=== PATIENT | male | born 1980 | race Two or more races ===

== ENCOUNTER 2024-08-25 00:22 | Inpatient (IN) | payer OTHER ==
[~2024-08-25] VITALS: Ht 175.3 cm; Wt 90.0 kg
[2024-08-25 01:51] LABS: COVID AG,FIA SOURCE NASAL SWAB
[2024-08-25 01:52] LABS: BASOPHILS % (AUTO) 0.6 % (0.0-2.0); EOSINOPHILS % (AUTO) 3.4 % (1.0-6.0); HEMATOCRIT 44.1 % (41-53); HEMOGLOBIN 14.6 g/dL (13.5-17.5); LYMPHOCYTES # (AUTO) 1.2 K/uL (1.0-4.8); LYMPHOCYTES % (AUTO) 15.4 % (22.0-44.0); MEAN CORPUSCULAR HEMOGLOBIN 30.3 pg (26.0-34.0); MEAN CORPUSCULAR HGB CONC 33.2 G/dL (31.0-37.0); MEAN CORPUSCULAR VOLUME 91 fL (80-100); MONOCYTES # (AUTO) 0.7 K/uL (0.1-1.0); MONOCYTES % (AUTO) 8.8 % (2.0-9.0); NEUTROPHILS # (AUTO) 5.8 K/uL (1.8-7.7); NEUTROPHILS % (AUTO) 71.8 % (40.0-70.0); PLATELET COUNT (AUTO) 236 K/uL (150-450); RED BLOOD CELL COUNT(AUTO) 4.83 MIL/uL (4.50-5.90); WHITE BLOOD COUNT (AUTO) 8.1 K/uL (4.5-11.0)
[2024-08-25 02:01] LABS: ANION GAP 6 mmol/L (8-16); CALCIUM, TOTAL 8.6 mg/dL (8.8-10.5); CARBON DIOXIDE 28 mmol/L (22-29); CHLORIDE 103 mmol/L (98-107); CREATININE 0.81 mg/dL (0.60-1.30); GLOMERULAR FILTR. RATE CALC > 60 mL/min (>60); GLUCOSE,RANDOM 95 mg/dL (70-110); POTASSIUM 4.1 mmol/L (3.5-5.1); SODIUM SERUM 137 mmol/L (136-145); UREA NITROGEN, BLOOD 14 mg/dL (7-18)
[2024-08-25 02:03] LABS: ALCOHOL, BLOOD (SERUM) < 3 mg/dL (0-10)
[2024-08-25 02:25] LABS: SARS-COV2 (COVID) ANTIGEN,FIA Negative (Negative)
[2024-08-25 05:42] VITALS: BP 132/71; PULSE 61; RESP 18; TEMP 97.9; O2SAT 100
[2024-08-25] MEDS ORDERED: DICYCLOMINE HCL 10 MG CAPSULE PO PRN (06:15)
[2024-08-25] MEDS ORDERED: LOPERAMIDE HCL 2 MG CAPSULE PO PRN ×2 (06:15→14:45)
[2024-08-25] MEDS ORDERED: METOCLOPRAMIDE HCL 5 MG/ML 2 ML VIAL IVP PRN (06:15)
[2024-08-25] MEDS: INFLUENZA VIRUS VACCINE TVS (6MO+) 2024-25/PF 45 MCG/0.5 ML SYRINGE IM. ONE (08:09)
[2024-08-25] MEDS: SODIUM CHLORIDE 0.9% 1,000 ML IV ONE (09:15)
[2024-08-25] MEDS ORDERED: CloNIDine HCL 0.1 MG TABLET PO PRN (14:45)
[2024-08-25] MEDS ORDERED: MAG HYDROX/ALUMINUM HYD/SIMETH ES 30 ML SUSPENSION UDCUP PO PRN (14:45)
[2024-08-25] MEDS ORDERED: GuaiFENesin/D-METHORPHAN [SUGAR-FREE] 200-20MG/10 ML SYRUP UDCUP PO PRN (14:45)
[2024-08-25] MEDS ORDERED: HydrOXYzine PAMOATE 50 MG CAPSULE PO PRN (14:45)
[2024-08-25] MEDS: THIAMINE 100 MG TABLET PO SCH (15:08)
[2024-08-25] MEDS: FOLIC ACID 1 MG TABLET PO SCH (15:08)
[2024-08-25] MEDS: MULTIVITAMINS WITH MINERALS, THERAPEUTIC TABLET PO SCH (15:08)
[2024-08-25] MEDS: CYANOCOBALAMIN 1,000 MCG/ML VIAL IM ONE (15:17)
[2024-08-25 16:00] VITALS: BP 121/85; PULSE 89; RESP 18; TEMP 98; O2SAT 100
[2024-08-25 19:36] VITALS: BP 130/79; PULSE 81; RESP 18; TEMP 98.1; O2SAT 98
[2024-08-25] MEDS: TEMAZEPAM 15 MG CAPSULE PO SCH (21:09)
[2024-08-26 04:38] VITALS: BP 124/75; PULSE 84; RESP 18; TEMP 98; O2SAT 99
[2024-08-26 08:06] VITALS: BP 119/60; PULSE 63; RESP 20; TEMP 97.8; O2SAT 99
[2024-08-26] MEDS: HydrOXYzine PAMOATE 50 MG CAPSULE PO PRN (12:05)
[2024-08-26 14:20] VITALS: BP 124/60; PULSE 71; RESP 19; TEMP 98.1; O2SAT 100
[2024-08-26 20:26] VITALS: BP 117/83; PULSE 85; RESP 18; TEMP 98.5; O2SAT 100
[2024-08-27 00:03] VITALS: BP 120/69; PULSE 75; RESP 19; TEMP 98.5; O2SAT 100
[2024-08-27] MEDS: IBUPROFEN 600 MG TABLET PO PRN (03:35)
[2024-08-27 03:41] VITALS: BP 129/74; PULSE 70; RESP 17; TEMP 98.6; O2SAT 100
[2024-08-27 12:00] VITALS: BP 132/73; PULSE 64; RESP 18; TEMP 97.8; O2SAT 99
[2024-08-27 16:00] VITALS: BP 118/72; PULSE 65; RESP 16; TEMP 98.2; O2SAT 100
[2024-08-27 20:17] VITALS: BP 129/79; PULSE 73; RESP 19; TEMP 97.9; O2SAT 100
[2024-08-27] MEDS: LORazepam 2 MG/ML VIAL IVP PRN (21:50)
[2024-08-28 00:30] VITALS: BP 124/70; PULSE 78; RESP 17; TEMP 98.1; O2SAT 100
[2024-08-28 04:00] VITALS: BP 122/71; PULSE 69; RESP 18; TEMP 98.1; O2SAT 100
[2024-08-28 08:00] VITALS: BP 115/60; PULSE 66; RESP 18; TEMP 98.1; O2SAT 100
[2024-08-28] MEDS: DICYCLOMINE HCL 10 MG CAPSULE PO PRN (08:33)
[2024-08-28 12:00] VITALS: BP 118/61; PULSE 71; RESP 18; TEMP 98.2; O2SAT 100
[2024-08-28 16:00] VITALS: BP 112/65; PULSE 72; RESP 18; TEMP 98.4; O2SAT 100
[2024-08-28 16:18] LABS: AMPHET/METH SCREEN,URINE POSITIVE (NEGATIVE); BARBITURATE SCREEN, URINE NEGATIVE (NEGATIVE); BENZODIAZEPINES SCREEN,URINE NEGATIVE (NEGATIVE); CANNABINOID SCREEN,URINE NEGATIVE (NEGATIVE); COCAINE SCREEN,URINE NEGATIVE (NEGATIVE); METHADONE SCREEN, URINE NEGATIVE (NEGATIVE); OPIATE SCREEN,URINE NEGATIVE (NEGATIVE); PHENCYCLIDINE SCREEN,URINE NEGATIVE (NEGATIVE)
[2024-08-28 16:29] LABS: ALCOHOL, URINE DRUG SCREEN NEGATIVE (NEGATIVE)
[2024-08-28 19:50] VITALS: BP 119/80; PULSE 73; RESP 18; TEMP 98.8; O2SAT 98
[2024-08-29 04:34] VITALS: BP 105/53; PULSE 65; RESP 18; TEMP 98.5; O2SAT 100
[2024-08-29 08:01] VITALS: BP 119/71; PULSE 80; RESP 17; TEMP 98.3; O2SAT 100
[2024-08-29 11:22] VITALS: BP 117/71; PULSE 75; RESP 18; TEMP 98.2; O2SAT 96
[2024-08-29 11:27] VITALS: BP 117/71; PULSE 75; RESP 18; TEMP 98.2; O2SAT 100
[2024-08-29] MEDS ORDERED: FOLI0.4T14 PO (14:34)
[2024-08-29] MEDS ORDERED: FOLI-130 PO (14:35)
[2024-08-29] MEDS ORDERED: MULT-1303 PO (14:37)
[2024-08-29] MEDS ORDERED: THIA100T80 PO (14:38)
[2024-08-29 15:49] VITALS: BP 107/66; PULSE 73; RESP 18; TEMP 98.5; O2SAT 100
[2024-08-29 16:00] VITALS: BP 107/66; PULSE 73; RESP 18; TEMP 98.5; O2SAT 100
== END 2024-08-29 18:20 | DRG 897 ==
LOC: EMS 00:22 → EDH 02:59 → 5N 05:30
PROVIDERS: ADMIT Internal Medicine; ATTEND Internal Medicine
DX: F11.23 Opioid dependence with withdrawal (principal); F15.13 Other stimulant abuse with withdrawal; Z20.822 Contact with and (suspected) exposure to COVID-19; Z79.899 Other long term (current) drug therapy; D17.9 Benign lipomatous neoplasm, unspecified
CPT/HCPCS: 74176; 80048; 80307; 85025; 87491; 87591; 99285; G0480; J2060; J3420

== ENCOUNTER 2024-12-08 19:23 | Inpatient (IN) | payer OTHER ==
[~2024-12-08] VITALS: Ht 177.8 cm; Wt 94.5 kg
[~2024-12-08 19:23] MED LIST: FOLI-130 PO; MULT-1303 PO; THIA100T80 PO
[2024-12-08 23:24] LABS: BASOPHILS % (AUTO) 0.4 % (0.0-2.0); EOSINOPHILS % (AUTO) 3.3 % (1.0-6.0); HEMATOCRIT 42.6 % (41-53); LYMPHOCYTES # (AUTO) 1.1 K/uL (1.0-4.8); LYMPHOCYTES % (AUTO) 12.3 % (22.0-44.0); MEAN CORPUSCULAR HEMOGLOBIN 29.4 pg (26.0-34.0); MEAN CORPUSCULAR HGB CONC 32.9 G/dL (31.0-37.0); MEAN CORPUSCULAR VOLUME 89 fL (80-100); MONOCYTES % (AUTO) 10.7 % (2.0-9.0); NEUTROPHILS # (AUTO) 6.7 K/uL (1.8-7.7); NEUTROPHILS % (AUTO) 73.3 % (40.0-70.0); PLATELET COUNT (AUTO) 244 K/uL (150-450); RED BLOOD CELL COUNT(AUTO) 4.77 MIL/uL (4.50-5.90); RED CELL DISTRIBUTION WIDTH 13.5 % (11.5-14.5); WHITE BLOOD COUNT (AUTO) 9.2 K/uL (4.5-11.0)
[2024-12-08 23:38] LABS: ANION GAP 8 mmol/L (8-16); CALCIUM, TOTAL 8.8 mg/dL (8.8-10.5); CARBON DIOXIDE 29 mmol/L (22-29); CHLORIDE 102 mmol/L (98-107); CREATININE 0.77 mg/dL (0.60-1.30); GLOMERULAR FILTR. RATE CALC > 60 mL/min (>60); GLUCOSE,RANDOM 95 mg/dL (70-110); POTASSIUM 4.5 mmol/L (3.5-5.1); SODIUM SERUM 139 mmol/L (136-145); UREA NITROGEN, BLOOD 11 mg/dL (7-18)
[2024-12-08] MEDS ORDERED: ACETAMINOPHEN 325 MG TABLET PO PRN (23:45)
[2024-12-08] MEDS ORDERED: ONDANSETRON HCL 4 MG/2 ML VIAL IVP PRN (23:45)
[2024-12-08 23:47] LABS: LACTIC ACID 1.1 mmol/L (0.4-2.0)
[2024-12-09] MEDS: TraMADol HCL 50 MG TABLET PO ONE (00:09)
[2024-12-09] MEDS: VANCOMYCIN 1GM/WATER(PEG/NADA) 200 ML IV ONE (00:09)
[2024-12-09] MEDS: SODIUM CHLORIDE 0.9% 1,000 ML IV ONE (00:10)
[2024-12-09] MEDS: LIDOCAINE 1% 10 ML VIAL SQ ONE (00:10)
[2024-12-09] MEDS: HEPARIN SODIUM,PORCINE 5,000 UNITS/ML VIAL SQ SCH (00:11)
[2024-12-09 06:09] LABS: ANION GAP 9 mmol/L (8-16); CALCIUM, TOTAL 8.3 mg/dL (8.8-10.5); CARBON DIOXIDE 25 mmol/L (22-29); CHLORIDE 105 mmol/L (98-107); GLOMERULAR FILTR. RATE CALC > 60 mL/min (>60); GLUCOSE,RANDOM 96 mg/dL (70-110); POTASSIUM 4.3 mmol/L (3.5-5.1); SODIUM SERUM 139 mmol/L (136-145); UREA NITROGEN, BLOOD 8 mg/dL (7-18)
[2024-12-09 06:12] LABS: HEMATOCRIT 40.8 % (41-53); HEMOGLOBIN 13.7 g/dL (13.5-17.5); MONOCYTES # (AUTO) 0.9 K/uL (0.1-1.0); PLATELET COUNT (AUTO) 201 K/uL (150-450); RED BLOOD CELL COUNT(AUTO) 4.55 MIL/uL (4.50-5.90)
[2024-12-09 06:15] LABS: BASOPHILS % (AUTO) 0.7 % (0.0-2.0); EOSINOPHILS % (AUTO) 2.5 % (1.0-6.0); LYMPHOCYTES # (AUTO) 1.2 K/uL (1.0-4.8); LYMPHOCYTES % (AUTO) 12.3 % (22.0-44.0); MEAN CORPUSCULAR HEMOGLOBIN 30.1 pg (26.0-34.0); MEAN CORPUSCULAR HGB CONC 33.5 G/dL (31.0-37.0); MEAN CORPUSCULAR VOLUME 90 fL (80-100); MONOCYTES % (AUTO) 9.2 % (2.0-9.0); NEUTROPHILS # (AUTO) 7.1 K/uL (1.8-7.7); NEUTROPHILS % (AUTO) 75.3 % (40.0-70.0); RED CELL DISTRIBUTION WIDTH 13.6 % (11.5-14.5); WHITE BLOOD COUNT (AUTO) 9.5 K/uL (4.5-11.0)
[2024-12-09] MEDS: DOCUSATE SODIUM 100 MG CAPSULE PO SCH (07:10)
[2024-12-09] MEDS: KETOROLAC TROMETHAMINE 15 MG/ML VIAL IVP PRN (07:13)
[2024-12-09 08:42] VITALS: BP 125/58; PULSE 80; RESP 18; TEMP 98.3; O2SAT 99
[2024-12-09] MEDS ORDERED: SODIUM CHLORIDE 0.9% 100 ML ONE (13:52)
[2024-12-09] MEDS ORDERED: IOHEXOL 350 MG/ML 100 ML VIAL ONE (13:52)
[2024-12-09] MEDS: VANCOMYCIN 1.25 GM/WATER(PEG) 250 ML IV SCH (15:46)
[2024-12-09 19:24] VITALS: BP 122/73; PULSE 69; RESP 18; TEMP 98.1; O2SAT 97
[2024-12-10] MEDS: CLINDAMYCIN 600 MG/D5% WATER 50 ML IV ONE (00:12)
[2024-12-10] MEDS: SODIUM CHLORIDE 0.9% 1,000 ML IV ONE (00:20)
[2024-12-10 04:58] VITALS: BP 123/72; PULSE 65; RESP 18; TEMP 98.1; O2SAT 98
[2024-12-10 08:38] LABS: ANION GAP 8 mmol/L (8-16); CARBON DIOXIDE 27 mmol/L (22-29); CHLORIDE 107 mmol/L (98-107); CREATININE 0.67 mg/dL (0.60-1.30); GLOMERULAR FILTR. RATE CALC > 60 mL/min (>60); GLUCOSE,RANDOM 83 mg/dL (70-110); POTASSIUM 3.7 mmol/L (3.5-5.1); SODIUM SERUM 142 mmol/L (136-145); UREA NITROGEN, BLOOD 10 mg/dL (7-18)
[2024-12-10 08:46] VITALS: BP 128/72; PULSE 68; RESP 18; TEMP 98; O2SAT 100
[2024-12-10 20:12] VITALS: BP 106/55; PULSE 63; RESP 18; TEMP 98.1; O2SAT 96
[2024-12-11 04:42] VITALS: BP 120/70; PULSE 65; RESP 18; TEMP 98.3; O2SAT 99
[2024-12-11] MEDS ORDERED: RINGERS SOLUTION,LACTATED 1,000 ML IV ONE (06:38)
[2024-12-11] MEDS ORDERED: BUPIVACAINE HCL/PF 0.5% 10 ML VIAL ONE (06:54)
[2024-12-11] MEDS ORDERED: BUPIVACAINE HCL/PF 0.5% 30 ML VIAL ONE (06:54)
[2024-12-11] MEDS ORDERED: LIDOCAINE 2%/EPI 1:200,000/PF 20 ML VIAL ONE (06:55)
[2024-12-11] MEDS ORDERED: VANCOMYCIN 1.25 GM/WATER(PEG) 250 ML IV ONE (07:00)
[2024-12-11] MEDS: ETHYL ALCOHOL 62% ANTISEPTIC NASAL SANITIZER 0.6 ML AMPUL NASAL ONE (07:33)
[2024-12-11] MEDS: CHLORHEXIDINE GLUCONATE 2% TOWELETTE [2'S/6'S] TP ONE (07:33)
[2024-12-11] MEDS ORDERED: ONDANSETRON HCL 4 MG/2 ML VIAL IM PRN (08:15)
[2024-12-11] MEDS ORDERED: MEPERIDINE-PF 25 MG/ML VIAL IVP PRN (08:15)
[2024-12-11] MEDS ORDERED: HYDROmorphone HCL 2 MG/ML SYRINGE IVP PRN (08:15)
[2024-12-11] MEDS ORDERED: ACETAMINOPHEN 500 MG TABLET PO PRN (08:15)
[2024-12-11] MEDS ORDERED: MORPHINE SULFATE 2 MG/ML SYRINGE IVP PRN (08:15)
[2024-12-11] MEDS ORDERED: IBUPROFEN 800 MG TABLET PO PRN (08:15)
[2024-12-11] MEDS ORDERED: HYDROCODONE/ACETAMINOPHEN 5-325 MG TABLET PO PRN ×2 (08:15)
[2024-12-11] MEDS ORDERED: FentaNYL CITRATE PF 100 MCG/2 ML VIAL ONE (08:24)
[2024-12-11] MEDS: FentaNYL CITRATE PF 100 MCG/2 ML VIAL IVP PRN (08:28)
[2024-12-11] MEDS: RINGERS SOLUTION,LACTATED 1,000 ML IV ONE (08:31)
[2024-12-11] MEDS: CeFAZolin 2 GM/DEXTROSE 50 ML IV SCH (09:25)
[2024-12-11] MEDS ORDERED: SODIUM CHLORIDE 0.9% 500 ML IV ONE (09:27)
[2024-12-11] MEDS ORDERED: SUGAMMADEX SODIUM 200 MG/2 ML VIAL IVP ONE (12:00)
[2024-12-11] MEDS ORDERED: ONDANSETRON HCL 4 MG/2 ML VIAL ONE (12:00)
[2024-12-11] MEDS ORDERED: DEXAMETHASONE SOD PHOS 4 MG/ML VIAL ONE (12:00)
[2024-12-11] MEDS ORDERED: PROPOFOL 1% 20 ML VIAL IVP ONE (12:00)
[2024-12-11] MEDS ORDERED: ROCURONIUM BROMIDE 10 MG/ML 5 ML VIAL ONE (12:00)
[2024-12-11] MEDS ORDERED: LIDOCAINE/PF 2% 5 ML SYRINGE IVP ONE (12:00)
[2024-12-11 12:34] VITALS: BP 126/89; PULSE 75; RESP 18; TEMP 98.2; O2SAT 100
[2024-12-11 13:45] LABS: ANION GAP 10 mmol/L (8-16); CALCIUM, TOTAL 8.8 mg/dL (8.8-10.5); CARBON DIOXIDE 23 mmol/L (22-29); CHLORIDE 107 mmol/L (98-107); CREATININE 0.66 mg/dL (0.60-1.30); GLOMERULAR FILTR. RATE CALC > 60 mL/min (>60); GLUCOSE,RANDOM 114 mg/dL (70-110); POTASSIUM 4.1 mmol/L (3.5-5.1); SODIUM SERUM 140 mmol/L (136-145); UREA NITROGEN, BLOOD 7 mg/dL (7-18)
[2024-12-11 14:15] LABS: VANCOMYCIN,RANDOM 19.4 mcg/mL (25.0-50.0)
[2024-12-11 15:39] VITALS: BP 132/74; PULSE 79; RESP 18; TEMP 98.2; O2SAT 97
[2024-12-11] MEDS ORDERED: VANCOMYCIN 1.25 GM/WATER(PEG) 250 ML IV SCH (16:00)
[2024-12-11] MEDS: HYDROCODONE/ACETAMINOPHEN 5-325 MG TABLET PO PRN (16:19)
[2024-12-11] MEDS: IBUPROFEN 800 MG TABLET PO PRN (20:11)
[2024-12-11 20:17] VITALS: BP 128/58; PULSE 100; RESP 18; TEMP 98.5; O2SAT 98
[2024-12-11] MEDS: MELATONIN 3 MG TABLET PO PRN (21:55)
[2024-12-11] MEDS: OXYGEN THERAPY IH SCH (22:00)
[2024-12-12 05:07] VITALS: BP 118/64; PULSE 56; RESP 18; TEMP 97.9; O2SAT 96
[2024-12-12 07:36] LABS: ANION GAP 8 mmol/L (8-16); CALCIUM, TOTAL 8.7 mg/dL (8.8-10.5); CARBON DIOXIDE 26 mmol/L (22-29); CHLORIDE 110 mmol/L (98-107); CREATININE 0.84 mg/dL (0.60-1.30); GLOMERULAR FILTR. RATE CALC > 60 mL/min (>60); GLUCOSE,RANDOM 97 mg/dL (70-110); POTASSIUM 3.2 mmol/L (3.5-5.1); SODIUM SERUM 144 mmol/L (136-145); UREA NITROGEN, BLOOD 11 mg/dL (7-18)
[2024-12-12 09:04] VITALS: BP 122/72; PULSE 68; RESP 18; TEMP 98.1; O2SAT 99
[2024-12-12] MEDS ORDERED: SODIUM CL IRRIG SOLN BOTTLE 250 ML IRRIG ONE (10:30)
[2024-12-12] MEDS ORDERED: POTASSIUM CHL 10 MEQ/WATER 50 ML IV PRN (12:45)
[2024-12-12] MEDS: POTASSIUM CHLORIDE 20 MEQ ER TABLET PO PRN (13:00)
[2024-12-12 20:26] VITALS: BP 111/57; PULSE 65; RESP 18; TEMP 98.6; O2SAT 98
[2024-12-12] MEDS: ZOLPIDEM TARTRATE 10 MG TABLET PO PRN (20:30)
[2024-12-13 04:40] VITALS: BP 115/78; PULSE 64; RESP 18; TEMP 98.2; O2SAT 98
[2024-12-13] MEDS ORDERED: MIDAZOLAM HCL 2 MG/2 ML VIAL IVP ONE (07:32)
[2024-12-13] MEDS ORDERED: FentaNYL CITRATE PF 100 MCG/2 ML VIAL IVP ONE (07:32)
[2024-12-13 08:29] LABS: ANION GAP 9 mmol/L (8-16); CALCIUM, TOTAL 8.3 mg/dL (8.8-10.5); CARBON DIOXIDE 25 mmol/L (22-29); CHLORIDE 109 mmol/L (98-107); CREATININE 0.74 mg/dL (0.60-1.30); GLOMERULAR FILTR. RATE CALC > 60 mL/min (>60); GLUCOSE,RANDOM 91 mg/dL (70-110); POTASSIUM 3.5 mmol/L (3.5-5.1); SODIUM SERUM 143 mmol/L (136-145); UREA NITROGEN, BLOOD 9 mg/dL (7-18)
[2024-12-13 08:38] VITALS: BP 108/72; PULSE 62; RESP 18; TEMP 98.4; O2SAT 99
[2024-12-13 20:29] VITALS: BP 117/80; PULSE 71; RESP 18; TEMP 98.2; O2SAT 98
[2024-12-14 04:45] VITALS: BP 131/83; PULSE 63; RESP 18; TEMP 98; O2SAT 96
[2024-12-14 07:56] LABS: ANION GAP 6 mmol/L (8-16); CALCIUM, TOTAL 8.4 mg/dL (8.8-10.5); CARBON DIOXIDE 27 mmol/L (22-29); CHLORIDE 108 mmol/L (98-107); CREATININE 0.68 mg/dL (0.60-1.30); GLOMERULAR FILTR. RATE CALC > 60 mL/min (>60); GLUCOSE,RANDOM 88 mg/dL (70-110); POTASSIUM 3.6 mmol/L (3.5-5.1); SODIUM SERUM 141 mmol/L (136-145); UREA NITROGEN, BLOOD 11 mg/dL (7-18); VANCOMYCIN,RANDOM 17.1 mcg/mL (25.0-50.0)
[2024-12-14 08:19] VITALS: BP 100/76; PULSE 57; RESP 19; TEMP 98.7; O2SAT 95
[2024-12-14] MEDS ORDERED: ACET-3385 PO (10:39)
[2024-12-14] MEDS ORDERED: IBUP-1493 PO (10:40)
[2024-12-14] MEDS ORDERED: LEVO750T68 PO (10:41)
[2024-12-14] MEDS ORDERED: VANCOMYCIN 1.5 GM/WATER(PEG) 300 ML IV SCH (20:00)
== END 2024-12-14 20:20 | DRG 572 ==
LOC: EMS 19:23 → EDH 23:41 → 6S 12-09 09:15
PROVIDERS: ADMIT Internal Medicine; ATTEND Internal Medicine
PROC: 0JBD0ZZ Excision of Right Upper Arm Subcutaneous Tissue and Fascia, Open Approach (ICD-10-PCS; principal; 2024-12-11 07:45)
DX: L03.113 Cellulitis of right upper limb (principal); L02.413 Cutaneous abscess of right upper limb; D17.1 Benign lipomatous neoplasm of skin and subcutaneous tissue of trunk; Z79.899 Other long term (current) drug therapy
CPT/HCPCS: 73201; 80048; 80202; 83605; 83735; 84132; 85025; 87040; 87070; 87081; 87101; 87186; 87205; 99285; G0378; J0690; J1100; J1644; J1885; J2250; J2405; J2704; J3010; J3490; J7030; J7040; J7050; J7120; 36415-L1; 36415-TC; Z7610